=== PATIENT | female | born 1960 | race Caucasian/White ===

== ENCOUNTER → 2020-01-23 | Outpatient (CLI) | payer MEDICAID ==
--- NOTE | 2020-01-23 14:37 | RAD ---
3 views of thoracic spine without comparison for thoracic spine pain. FINDINGS: Spine stimulator is present. There is no fracture or acute osseous or alignment abnormality of the thoracic spine. Intervertebral disc spaces are maintained at all levels. Degenerative changes are present at C5-6. IMPRESSION: 1. No acute osseous abnormality of the thoracic spine. Electronically signed by: Percy Bryan MD (01/23/2020 2:34 PM) [id number]
== END | disposition home or self-care (01) ==
LOC: RAD 13:47
PROVIDERS: ATTEND Family Medicine
DX: M47.812 Spondylosis without myelopathy or radiculopathy, cervical region (principal)
CPT/HCPCS: 72072